=== PATIENT | female | born 1945 | race Two or more races ===

== ENCOUNTER 2021-05-17 07:44 | Emergency (ER) | payer OTHER ==
[~2021-05-17] VITALS: Ht 162.6 cm; Wt 50.8 kg
[2021-05-17] MEDS ORDERED: ACETAMINOPHEN650 M2 (10:36)
[2021-05-17] MEDS ORDERED: KETO10TA2 PO (10:46)
[2021-05-17] MEDS ORDERED: MEDROLPACK PO (10:46)
[2021-05-17] MEDS ORDERED: NORFLEX100MG PO (10:46)
== END 2021-05-17 10:51 | disposition home or self-care (01) ==
LOC: ER 07:44
DX: M54.5 Low back pain (principal); M25.551 Pain in right hip; M25.552 Pain in left hip